=== PATIENT | female | born 1970 ===

== ENCOUNTER 2019-07-03 12:43 | Outpatient (CLI) | payer OTHER | END 2019-07-03 12:48 | disposition home or self-care (01) | LOC: SONOGRAMA 12:43 | DX: N60.11 Diffuse cystic mastopathy of right breast (principal); N60.12 Diffuse cystic mastopathy of left breast ==

== ENCOUNTER 2020-01-29 12:48 | Outpatient (CLI) | payer OTHER | END 2020-01-29 13:00 | disposition home or self-care (01) | LOC: MAMO-SONO 12:48 | PROVIDERS: ATTEND Obstetrics & Gynecology | DX: N64.4 Mastodynia (principal) ==

== ENCOUNTER 2021-02-05 08:02 | Outpatient (CLI) | payer OTHER | END 2021-02-05 08:18 | disposition home or self-care (01) | LOC: MAMO-SONO 08:02 | PROVIDERS: ATTEND Obstetrics & Gynecology | DX: Z12.31 Encounter for screening mammogram for malignant neoplasm of breast (principal); N83.201 Unspecified ovarian cyst, right side; N64.4 Mastodynia; Z87.898 Personal history of other specified conditions ==

== ENCOUNTER 2022-02-13 13:11 | Outpatient (CLI) | payer OTHER | END 2022-02-13 13:33 | disposition home or self-care (01) | LOC: MAMO-SONO 13:11 | PROVIDERS: ATTEND Obstetrics & Gynecology | DX: Z12.31 Encounter for screening mammogram for malignant neoplasm of breast (principal); N64.4 Mastodynia; J20.8 Acute bronchitis due to other specified organisms; E03.8 Other specified hypothyroidism ==

== ENCOUNTER 2023-05-17 08:32 | Outpatient (CLI) | payer OTHER | END 2023-05-17 08:56 | disposition home or self-care (01) | LOC: MAMO-SONO 08:32 | PROVIDERS: ATTEND Obstetrics & Gynecology | DX: N64.4 Mastodynia (principal); Z12.31 Encounter for screening mammogram for malignant neoplasm of breast; L04.0 Acute lymphadenitis of face, head and neck; M54.2 Cervicalgia; E04.1 Nontoxic single thyroid nodule; E03.9 Hypothyroidism, unspecified; R49.0 Dysphonia ==

== ENCOUNTER 2024-08-03 08:12 | Outpatient (CLI) | payer OTHER | END 2024-08-03 08:25 | disposition home or self-care (01) | LOC: MAMO-SONO 08:12 | PROVIDERS: ATTEND Obstetrics & Gynecology | DX: N63.0 Unspecified lump in unspecified breast (principal); N64.59 Other signs and symptoms in breast; N64.9 Disorder of breast, unspecified ==

== ENCOUNTER 2025-06-12 14:02 | Outpatient (CLI) | payer OTHER | END 2025-06-12 14:17 | disposition home or self-care (01) | LOC: MAMO-SONO 14:02 | PROVIDERS: ATTEND General Practice | DX: E04.0 Nontoxic diffuse goiter (principal); N64.4 Mastodynia; Z12.31 Encounter for screening mammogram for malignant neoplasm of breast ==